=== PATIENT | male | born 1970 | race African-American/Black ===

== ENCOUNTER 2023-10-11 13:43 | Emergency (ER) | payer OTHER ==
[2023-10-11 13:52] VITALS: PULSE 100; RESP 18; TEMP 98.7; BMI 29.6
[2023-10-11 14:50] LABS: EOS % 0.3 % (0-4.5); HEMATOCRIT 46.4 % (35.4-49); HEMOGLOBIN 15.9 GM/dL (11.7-16.9); LYMPH % 45.8 % (8-40); MCH 30.6 pg (25.7-33.7); MCHC 34.2 g/dl (32.0-35.9); MEAN CELL VOLUME 89.5 fl (80-96); MEAN PLT VOLUME 8.3 fl (7.5-11.1); MONO % 5.8 % (3.8-10.2); NEUT % 47.1 % (42.8-82.8); PLATELET COUNT 159 10^3/uL (134-434); RBC 5.19 M/mm3 (4.00-5.60); RDW 13.6 % (11.9-15.9); WHITE BLOOD COUNT 4.7 K/mm3 (4.0-10.0)
[2023-10-11 14:57] LABS: INR 1.05 (0.83-1.09); PROTHROMBIN TIME (PATIENT) 11.8 SEC (9.7-13.0)
[2023-10-11] MEDS ORDERED: LABETALOL HCL 5 MG/1 ML (100MG/20 ML VIAL) ONE (14:58)
[2023-10-11 15:07] LABS: POTASSIUM 5.1 mmol/L (3.5-5.1)
[2023-10-11 15:09] LABS: CALCIUM 9.9 mg/dL (8.5-10.1)
[2023-10-11 15:10] LABS: BLOOD UREA NITROGEN 9.7 mg/dL (7-18)
[2023-10-11 15:13] VITALS: BP 150/86
[2023-10-11 15:13] LABS: CREATININE 1.2 mg/dL (0.55-1.3)
[2023-10-11 15:14] LABS: BILIRUBIN,TOTAL 1.2 mg/dL (0.2-1); TOT PROT 8.2 g/dl (6.4-8.2)
[2023-10-11] MEDS: LABETALOL HCL 5 MG/1 ML (100MG/20 ML VIAL) IVPUSH ONE (16:33)
[2023-10-11] MEDS: METOPROLOL TARTRATE 5 MG/5 ML VIAL IVPUSH ONE (16:33)
== END 2023-10-11 17:18 | disposition home or self-care (01) ==
LOC: JER 13:43
DX: I10 Essential (primary) hypertension (principal)
CPT/HCPCS: 36415; 71045-TC-FY; 80053; 84484; 85025; 85610; 93005; 93010; 99285-25